=== PATIENT | female | born 1960 | race Caucasian/White ===

== ENCOUNTER → 2024-04-28 09:04 | Outpatient (REF) | payer OTHER, SELFPAY | LOC: WDC 09:04 | PROVIDERS: ATTENDING PHYSICIAN Obstetrics & Gynecology; FAMILY PHYSICIAN Family Medicine | DX: N64.59 Other signs and symptoms in breast (principal); R59.0 Localized enlarged lymph nodes | CPT/HCPCS: 76642; 77061; 77065 ==

== ENCOUNTER → 2024-10-02 08:36 | Outpatient (REF) | payer OTHER, SELFPAY | LOC: HWWDC 08:36 | PROVIDERS: ATTENDING PHYSICIAN Family Medicine | DX: Z12.31 Encounter for screening mammogram for malignant neoplasm of breast (principal) | CPT/HCPCS: 77063; 77067 ==